=== PATIENT | male | born 1955 | race American Indian/Alaskan Native ===

== ENCOUNTER 2018-07-12 14:16 | Emergency (ER) | payer SELFPAY ==
[2018-07-12 14:34] VITALS: BMI 27.2
[2018-07-12 14:42] VITALS: RESP 18
--- NOTE | 2018-07-12 16:47 | C.PDOC ---
History Of Present Illness 63 year old male, whose PMHx includes COPD, Asthma, and Osteoporosis, and alcohol abuse, presents to the ED for evaluation of right hip and right shoulder pain which began after he sustained a fall today. Patient states he fell on the street while waiting for a bus. Patient states his pain is dull, constant, and describes it as 6/10 in severity. Patient denies fever, chills, headache, nausea, vomiting. Time Seen by Provider: 07/12/18 15:54 Chief Complaint (Nursing): Upper Extremity Problem/Injury History Per: Patient History/Exam Limitations: no limitations Onset/Duration Of Symptoms: Hrs Current Symptoms Are (Timing): Still Present Quality: Dull, "Pain" Pain Scale Rating Of: 6 Additional History Per: Patient Past Medical History Reviewed: Historical Data, Nursing Documentation, Vital Signs Vital Signs: Last Vital Signs Temp 98.8 F 07/12/18 14:34 Pulse 91 H 07/12/18 14:34 Resp 18 07/12/18 14:34 BP 129/72 07/12/18 14:34 Pulse Ox 94 L 07/12/18 14:34 - Medical History PMH: Asthma, COPD, Osteoporosis Surgical History: No Surg Hx Family History: States: Unknown Family Hx - Social History Hx Alcohol Use: Yes Hx Substance Use: Yes - Immunization History Hx Tetanus Toxoid Vaccination: No Hx Influenza Vaccination: No Hx Pneumococcal Vaccination: No Review Of Systems Constitutional: Negative for: Fever, Chills Gastrointestinal: Negative for: Nausea, Vomiting Neurological: Negative for: Headache Physical Exam - Physical Exam Appears: Non-toxic, No Acute Distress Skin: Normal Color, Warm, Dry Head: Normacephalic Eye(s): bilateral: Normal Inspection Oral Mucosa: Moist, Other (alcohol on breath ) Neck: Supple Chest: Symmetrical, No Deformity, No Tenderness Cardiovascular: Rhythm Regular, No Murmur Respiratory: Normal Breath Sounds, No Rales, No Rhonchi, No Wheezing Gastrointestinal/Abdominal: Soft, No Tenderness, No Guarding, No Rebound Back: Other (appears to have chronic spinal deformity ) Extremity: Normal ROM (good mobility of right hip and right shoulder ), Tenderness (to right hip and right shoulder ), Capillary Refill (less than 2 seconds ), Other (able to bear weight and walk ) Neurological/Psych: Oriented x3 Gait: Steady ED Course And Treatment O2 Sat by Pulse Oximetry: 94 (on RA) Pulse Ox Interpretation: Normal - Other Rad shoulder XR X-Ray: Viewed By Me, Read By Radiologist Interpretation: Date of service: 07/12/2018. PROCEDURE: Radiographs of the Right Shoulder. HISTORY: trauma. COMPARISON: No prior. FINDINGS: BONES: Normal. No fracture. 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 Minor degenerative osteoarthritis right acromioclavicular joint. SOFT TISSUES: Normal. OTHER FINDINGS: Note made of a tiny elliptical shaped radiopaque density right lateral upper lung field overlying the right anterior 3rd rib which could represent tiny granuloma for nodule. IMPRESSION: No evidence of acute displaced fracture nor dislocation. Moderate DJD right glenohumeral joint. Medical Decision Making Medical Decision Making: Impression: 63 year old male with right shoulder and right hip pain Plan: * right shoulder XR * right hip XR * Motrin PO * Tylenol PO * reassess and disposition Progress: Hip XR and Right shoulder XR ordered and reviewed. Motrin PO and Tylenol PO given. Disposition Counseled Patient/Family Regarding: Studies Performed, Diagnosis, Need For Followup - Disposition Referrals: [facility] [Outside] Disposition: HOME/ ROUTINE Disposition Time: 18:10 Condition: STABLE Instructions: Contusion (DC) Forms: [facility] (Croatian), General Discharge Instructions - POA Present On Arrival: None - Clinical Impression Clinical Impression: Contusion - Scribe Statement The provider has reviewed the documentation as recorded by the Scribe (Mckenna Gibbs) Provider Attestation: All medical record entries made by the Scribe were at my direction and personally dictated by me. I have reviewed the chart and agree that the record accurately reflects my personal performance of the history, physical exam, medical decision making, and the department course for this patient. I have also personally directed, reviewed, and agree with the discharge instructions and disposition.
--- NOTE | 2018-07-12 17:45 | RAD ---
Date of service: 07/12/2018 PROCEDURE: Radiographs of the Right Shoulder HISTORY: trauma COMPARISON: No prior. FINDINGS: BONES: Normal. No fracture. 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 Minor degenerative osteoarthritis right acromioclavicular joint. SOFT TISSUES: Normal. OTHER FINDINGS: Note made of a tiny elliptical shaped radiopaque density right lateral upper lung field overlying the right anterior 3rd rib which could represent tiny granuloma for nodule. IMPRESSION: No evidence of acute displaced fracture nor dislocation. Moderate DJD right glenohumeral joint.
[2018-07-12 18:28] VITALS: BP 166/99; PULSE 79; TEMP 98.6; O2SAT 96
--- NOTE | 2018-07-12 18:29 | RAD ---
Date of service: 07/12/2018 PROCEDURE: Pelvis and right hip HISTORY: trauma COMPARISON: None TECHNIQUE: Standard protocol for this study/examination. FINDINGS: Right hip: Mild degenerative change without evidence of fracture, protrusio subluxation. Left hip: Evidence of osteonecrosis left femoral head. IMPRESSION: No acute findings related to/accounting for the clinical presentation.
== END 2018-07-12 18:31 | disposition home or self-care (01) ==
LOC: C.ER 14:16
DX: S70.01XA Contusion of right hip, initial encounter (principal); S40.011A Contusion of right shoulder, initial encounter; W18.30XA Fall on same level, unspecified, initial encounter; Y92.410 Unspecified street and highway as the place of occurrence of the external cause